=== PATIENT | male | born 1965 | race Caucasian/White ===

== ENCOUNTER → 2018-04-18 10:19 | Outpatient (CLI) | payer OTHER, SELFPAY ==
--- NOTE | 2018-04-18 10:31 | RAD_ITS ---
STUDY: X-RAY - LEFT KNEE REASON FOR EXAM: Male, 52 years old. Pain. TECHNIQUE: 4 view(s) of the knee. COMPARISON: None. FINDINGS: Normal visualized distal femur. Normal visualized proximal tibia and fibula. Normal proximal tibiofibular articulation. There is no demonstrated fracture. There is mild degenerative arthrosis of the medial femorotibial compartment. Normal lateral femorotibial compartment. There is mild degenerative arthrosis of the patellofemoral articulation. The soft tissue structures are unremarkable. RAD/Knee 4 or More Views IMPRESSION: Degenerative arthrosis. Electronically Signed: Conor Chavis MD at 10:57 EDT , Service support ,
== END ==
PROVIDERS: Family Provider Family Medicine; PCP Family Medicine; Visit Provider Family Medicine
DX: M25.562 Pain in left knee (principal)
CPT/HCPCS: 73564

== ENCOUNTER → 2019-06-29 08:54 | Outpatient (CLI) | payer OTHER, SELFPAY ==
[2019-06-29 10:22] LABS: ALB/GLOB Ratio 1.3 RATIO (0.9-2.4); AST(SGOT) 33 U/L (15-37); Alanine Aminotransfer ALT/SGPT 64 U/L (16-61); Albumin, Serum 4.3 g/dL (3.2-5.0); Alkaline Phosphatase 65 U/L (45-117); Anion Gap 5 (5-15); BUN 25 mg/dL (7-18); Calcium,Total 9.3 mg/dL (8.5-10.1); Chloride 107 mmol/L (98-107); Creatinine, Serum 1.19 mg/dL (0.70-1.30); EST Glomerular Filtration Rate 68 mL/min (>60); Est Glom Filt Rate - Afr Amer 82 mL/min (>60); Globulin 3.4 g/dL (2.2-4.2); Glucose 91 mg/dL (74-106); PSA,Total - Annual Screen 0.83 ng/mL (0.00-4.00); Potassium 4.6 mmol/L (3.5-5.1); Protein, Total 7.7 g/dL (6.4-8.2); Sodium Level 141 mmol/L (136-145)
== END ==
PROVIDERS: Family Provider Family Medicine; PCP Family Medicine; Referring Provider Family Medicine; Visit Provider Family Medicine
DX: R10.13 Epigastric pain (principal); Z12.5 Encounter for screening for malignant neoplasm of prostate
CPT/HCPCS: 36415; 80053; 84153; G0103

== ENCOUNTER → 2020-07-15 11:03 | Outpatient (CLI) | payer OTHER, SELFPAY | PROVIDERS: PCP Family Medicine; Referring Provider Family Medicine; Visit Provider Family Medicine | DX: Z00.00 Encounter for general adult medical examination without abnormal findings (principal) | CPT/HCPCS: 36415 ==

== ENCOUNTER → 2021-12-15 | Outpatient (CLI) | payer OTHER, SELFPAY ==
--- NOTE | 2021-12-15 13:56 | RAD_ITS ---
STUDY: XR Knee Complete 4 Views or More 12/15/2021 4:43 PM REASON FOR EXAM: Male, 56 years old. PAIN -- EUGENE TECHNIQUE: XR Knee Complete 4 Views or More RIGHT COMPARISON: None FINDINGS: Normal visualized distal femur. Normal visualized proximal tibia and fibula. Normal proximal tibiofibular articulation. There is moderate degenerative arthrosis of the medial femorotibial compartment with moderate joint space narrowing. Normal lateral femorotibial compartment. There is severe degenerative arthrosis of the patellofemoral articulation. The soft tissue structures are unremarkable. RAD/Knee 4 or More Views IMPRESSION: Degenerative arthrosis. Electronically Signed: Ronan Gracia MD at 16:44 EDT ,
--- NOTE | 2021-12-15 13:56 | RAD_ITS ---
STUDY: XR Knee Complete 4 Views or More 12/15/2021 4:42 PM REASON FOR EXAM: Male, 56 years old. PAIN -- BILATERAL KNEE PAIN TECHNIQUE: XR Knee Complete 4 Views or More LEFT COMPARISON: None FINDINGS: Normal visualized distal femur. Normal visualized proximal tibia and fibula. Normal proximal tibiofibular articulation. There is moderate degenerative arthrosis of the medial femorotibial compartment with moderate joint space narrowing. Normal lateral femorotibial compartment. There is mild degenerative arthrosis of the patellofemoral articulation. There is a soft tissue prominence in the suprapatellar region suggesting a small volume joint effusion. The soft tissue structures are unremarkable. RAD/Knee 4 or More Views IMPRESSION: Degenerative arthrosis. Effusion, as described above. Electronically Signed: Ronan Gracia MD at 16:43 EDT ,
[2021-12-15 15:48] LABS: ALB/GLOB Ratio 1.2 RATIO (0.9-2.4); AST(SGOT) 43 U/L (15-37); Alanine Aminotransfer ALT/SGPT 66 U/L (16-61); Albumin, Serum 4.3 g/dL (3.2-5.0); Alkaline Phosphatase 67 U/L (45-117); Anion Gap 8 (5-15); BUN 18 mg/dL (7-18); BUN/Creat Ratio 14.9 RATIO (10-20); Calcium,Total 9.2 mg/dL (8.5-10.1); Chloride 105 mmol/L (98-107); Creatinine, Serum 1.21 mg/dL (0.70-1.30); EST Glomerular Filtration Rate 66 mL/min (>60); Est Glom Filt Rate - Afr Amer 80 mL/min (>60); Globulin 3.7 g/dL (2.2-4.2); Glucose 119 mg/dL (74-106); Potassium 3.7 mmol/L (3.5-5.1); Sodium Level 139 mmol/L (136-145)
== END | disposition home or self-care (01) ==
PROVIDERS: PCP Family Medicine; Referring Provider Family Medicine; Visit Provider Family Medicine
DX: M25.562 Pain in left knee (principal); M25.561 Pain in right knee; R79.89 Other specified abnormal findings of blood chemistry
CPT/HCPCS: 36415; 73564; 80053

== ENCOUNTER 2024-05-22 07:52 | Day surgery (SDC) | payer OTHER, SELFPAY ==
[2024-05-22] VITALS (7 sets, daily range): BP systolic 92–137; BP diastolic 42–89; PULSE 68–78; RESP 16; TEMP 36.3–36.6; O2SAT 93–97; BMI 37.3
--- NOTE | 2024-05-22 08:05 | PCM.PRE.AN2 ---
ASA Classification* ASA Classification ASA Classification: 2 Assessment & Plan Anesthesia* Anesthesia Assessment Anesthesia Assessment: Discussed sedation and/or anesthesia options, risks, benefits, and alternatives with patient/parents/legal guardian/POA. Questions invited. The patient/parents/legal guardian/POA seems to understand and agrees to proceed with anesthesia plan. Reviewed the physical assessment, medical history, allergy history and patient home medications list prior to surgery/procedure/anesthetic and documented any changes. Performed airway and anesthesia risk assessments. 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 When Was Last Pacemaker Check QUESTION #4 FULL TEXT: You/Your Family Experience fever (hyperthermia) with Anesthesia Last Oral Intake Last Oral intake: Last Oral Intake NPO since Meds taken in AM with sips of water? Meds patient instructed to take am of surgery PONV PONV - job training specialist: PONV - job training specialist Female No 05/21/24 08:36 HX of Motion Sickness No 05/21/24 08:36 HX of N/V After Surgery No 05/21/24 08:36 Non-Smoker Yes 05/21/24 08:36 Duration of Surgery greater No 05/21/24 08:36 than 60 minutes Number of Risk Factors 1 05/21/24 08:36 PONV Score Low Risk 05/21/24 08:36 Height & Weight Height & Weight: Anesthesia: Height & Weight Height 6 ft 2 in 03/11/24 09:19 Respiratory Assessment Respiratory Assessment - job training specialist: Respiratory Tract Infection Hx - job training specialist Hx Respiratory Tract Infection No 05/21/24 08:36 STOP Sleep Apnea STOP Sleep Apnea - job training specialist: STOP Sleep Apnea - job training specialist Hx Hypertension No 05/21/24 08:36 Hx Sleep Apnea No 05/21/24 08:36 CPAP BIPAP Do you snore loudly (louder Yes 05/21/24 08:36 than talking or can be heard Do you often feel tired/ No 05/21/24 08:36 fatigued/ sleepy during daytime? Has anyone observed you stop Yes 05/21/24 08:36 breathing during sleep? STOP Results Positive 05/21/24 08:36 QUESTION #5 FULL TEXT : Do you snore loudly (louder than talking or can be heard through closed doors)? 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 Specify any problems Hx of Preganancy in last 3 N/A 05/21/24 08:36 Months Nurse Filling Out Transfusion [email or web address] 05/21/24 08:36 & Questions: Date: 05/21/24 05/21/24 08:36 Time: 08:38 05/21/24 08:36 Patient unable to answer at this time (ie. confused, unrespo /Reproduction History /Reproductive History - job training specialist: /Reproductive Hx- job training specialist Hx Now Gestational Age (in weeks): EDC: Hx Hx Para Hx Section SAB PFSH Medical History Wears glasses Gastric reflux Non-smoker Dyspepsia Family hx of colon cancer Hx of colonic polyps Home Medications ?Medication ?Instructions ?Recorded ?Last Taken ?Type pantoprazole 40 mg tablet,delayed 40 mg PO DAILY 03/11/24 Unknown History release meloxicam 15 mg tablet 15 mg PO DAILY 05/21/24 05/20/24 History Allergy/AdvReac Type Severity Reaction Status Date / Time No Known Allergies Allergy Verified 05/21/24 08:34 Family History Grandmother Colon cancer, Onset Age: 70 Paternal Father Colon polyps Grandmother Colon cancer, Onset Age: 70 maternal Surgical History History of esophagogastroduodenoscopy (EGD) Hx of colonoscopy Social History household members: spouse current occupational status: employed Smoking Status: Never smoker substance use type: does not use Review of Systems (Anesthesia) ROS Narrative System reviewed and no additional complaints, except as documented.
--- NOTE | 2024-05-22 09:03 | H&P.OPEN ---
HPI - General HPI Narrative STEF VILLAR, is a 58 M who presents for screening colonoscopy. His last 1 was about 8 years ago. He does have family history of colon cancer in his father and grandfather and has colonoscopy every 5 years. He had a polyp during his first colonoscopy but he does not have any polyps on his last one. He denies abdominal pain or blood in the stool. [facility] Medical History Wears glasses Gastric reflux Non-smoker Dyspepsia Family hx of colon cancer Hx of colonic polyps Home Medications ?Medication ?Instructions ?Recorded ?Last Taken ?Type pantoprazole 40 mg tablet,delayed 40 mg PO DAILY 03/11/24 Unknown History release meloxicam 15 mg tablet 15 mg PO DAILY 05/21/24 05/20/24 History Allergy/AdvReac Type Severity Reaction Status Date / Time No Known Allergies Allergy Verified 05/22/24 08:09 Family History Grandmother Colon cancer, Onset Age: 70 Paternal Father Colon polyps Grandmother Colon cancer, Onset Age: 70 maternal Surgical History History of esophagogastroduodenoscopy (EGD) Hx of colonoscopy Social History household members: spouse current occupational status: employed Smoking Status: Never smoker substance use type: does not use Past Medical/Surgical History Planned Operation Planned Operative Procedure(s): COLONOSCOPY Previous Hospitalizations/Surgeries HX Hospitalizations: No Any Problems With Anesthesia: No You/Your Family Experience Fever (Hyperthermia) With Anes: No Cholinesterase deficiency: No Cardiovascular Hx Hypertension: No Respiratory Hx Sleep Apnea: No Hx Respiratory Tract Infection/Cold (presently): No Do You Snore Loudly (louder than talking or can be heard): Yes Do You Often Feel Tired/ Fatigued/ Sleepy Dring Daytime?: No Has Anyone Observed You Stop Breathing During Sleep?: Yes Result (for STOP score): Positive Smoking Status: Never smoker Neurological Does patient have nerve stimulator: No Miscellaneous Recent Exposure to Contagious Disease: No Allergies No Known Allergies Allergy (Verified 05/22/24 08:09) Discharge After D/C, Where Do you Plan to Go: Return Home Vital Signs Vital Signs Vital Signs: 05/22/24 08:10 05/22/24 08:10 Temperature 97.4 F L Temperature Source Temporal Pulse Rate 78 Respiratory Rate 16 Respiratory Pattern Normal Blood Pressure 137/89 H Blood Pressure Mean 105 Blood Pressure Source Monitor Blood Pressure Position Semi-Fowlers Blood Pressure Location Left Arm Pulse Ox 94 Oxygen Delivery Method Room Air Weight Weight: 291 lb 0.163 oz Body Mass Index (BMI) 37.3 Physical Exam Const alert and oriented x3 HEENT normocephalic Eyes PERRL Resp normal respiratory effort and normal air movement Cardio regular rate and regular rhythm GI soft to palpation, non-tender and non-distended Extremity normal to inspection Assessment & Plan Assessment/Plan (1) Screen for colon cancer: PLAN: I explained endoscopy in detail to the patient. I explained the risks including but not limited to stroke or heart attack with anesthesia, perforation of the GI tract, bleeding, infection. I explained that any of these could necessitate further emergency surgery. The patient understands and all questions were answered sufficiently. The patient wishes to proceed with procedure. Mannie Snyder MD Pager: [facility] [address] [place] [address], [address] [place] [address] Office: Surgery Risks - Colonoscopy Risks Include but are not Limited To: Risks include but are not limited to: Bleeding, perforation requiring further surgery, inability to complete colonoscopy requiring barium enema.
--- NOTE | 2024-05-22 09:31 | OP.COLON_ITS ---
Patient Name: Francis Perez Procedure Date: 05/22/2024 9:09 AM Date of : 1965 Age: 58 Procedure: Colonoscopy Indications: Screening in patient at increased risk: Family history of 1st-degree relative with colorectal cancer Providers: Mannie Snyder MD Referring MD: Grady Morejon Medicines: Propofol per Anesthesia Patient Profile: This is a 58 year old male. Refer to note in patient chart for documentation of history and physical. Last Colonoscopy: several years ago. Complications: No immediate complications. Procedure: Pre-Anesthesia Assessment: - Prior to the procedure, a History and Physical was performed, and patient medications and allergies were reviewed. The patient's tolerance of previous anesthesia was also reviewed. The risks and benefits of the procedure and the sedation options and risks were discussed with the patient. All questions were answered, and informed consent was obtained. Prior Anticoagulants: The patient has taken no anticoagulant or antiplatelet agents. After reviewing the risks and benefits, the patient was deemed in satisfactory condition to undergo the procedure. After I obtained informed consent, the scope was passed under direct vision. Throughout the procedure, the patient's blood pressure, pulse, and oxygen saturations were monitored continuously. The was introduced through the anus and advanced to the cecum, identified by appendiceal orifice and ileocecal valve. The colonoscopy was performed without difficulty. The patient tolerated the procedure well. The quality of the bowel preparation was good. The ileocecal valve, appendiceal orifice, and rectum were photographed. Scope In: 9:18:42 AM Scope Withdrawal Time 0 hours 4 minutes 55 seconds Scope Out: 9:27:51 AM Total Procedure Duration Time 0 hours 9 minutes 9 seconds Findings: The entire examined colon appeared normal on direct and retroflexion views. Impression: - The entire examined colon is normal on direct and retroflexion views. - No specimens collected. Recommendation: - Discharge patient to home. - Resume previous diet. - Continue present medications. - Repeat colonoscopy in 5 years for surveillance. Procedure Code(s): --- Professional --- 78244, Colonoscopy, flexible; diagnostic, including collection of specimen(s) by brushing or washing, when performed (separate procedure) Diagnosis Code(s): --- Professional --- Z80.0, Family history of malignant neoplasm of digestive organs CPT copyright 2021 [employer]. All rights reserved. The codes documented in this report are preliminary and upon orthopedic coder review may be revised to meet current compliance requirements. Mannie Snyder MD 05/22/2024 9:31:11 AM This report has been signed electronically. Number of Addenda: 0 Note Initiated On: 05/22/2024 9:09 AM
--- NOTE | 2024-05-22 09:31 | OP.CCLET_ITS ---
05/22/2024 Grady Morejon [address] [place] [address] Re : Colonoscopy procedure for Francis Perez Dear Dr. Morejon This procedure was performed on Wednesday, May 22, 2024. My impressions and recommendations are as follows: Impressions : - The entire examined colon is normal on direct and retroflexion views. - No specimens collected. Recommendations : - Discharge patient to home. - Resume previous diet. - Continue present medications. - Repeat colonoscopy in 5 years for surveillance. My findings are described in the full procedure note, which is enclosed. If I can be of further assistance, please feel free to contact me at Doctor phone number(s): , Work: . Sincerely, Mannie Snyder MD 05/22/2024 9:31:11 AM This report has been signed electronically.
--- NOTE | 2024-05-22 09:35 | PCM.POST.ANE ---
Anesthesia: Postop Eval I Current Vital Signs Temperature: 97.8 F Pulse Rate: 70 Blood Pressure: 95/79 Respiratory Rate: 16 Pulse Ox: 96 Oxygen Delivery Method: Room Air Assessment Airway patent: Yes Spontaneous unlabored respirations: Yes Mental status: Asleep nausea: No Vomiting: No Anesthesia Complication: No Fluid Hydration Crystalloid volume administer (ml): 50 Total IV fluid infused: 50 Progress Note Anesthesia document: Postop Eval 1 completed: Yes
--- NOTE | 2024-05-22 10:16 | PCM.POSTANE2 ---
Anesthesia Postop Eval I Sum Postop Eval Completion status Anesthesia document: Postop Eval 1 completed: Yes Anesthesia Postop Eval I Summary Anesthesia Postop Eval I Summary: Anesthesia Postop Eval I: Assessment Summary Airway patent Yes 05/22/24 09:36 [email or web address] Spontaneous unlabored Yes 05/22/24 09:36 [email or web address] respirations Mental status Asleep 05/22/24 09:36 [email or web address] nausea No 05/22/24 09:36 [email or web address] Vomiting No 05/22/24 09:36 [email or web address] Anesthesia Postop Eval I: Fluid Summary Crystalloid volume administer 50 05/22/24 09:36 [email or web address] (ml) Colloids volume administered ( ml) Blood Product volume administered (ml) Total IV fluid infused 50 05/22/24 09:36 [email or web address] Anesthesia Postop Eval I: Summary Notes Anesthesia Complication No 05/22/24 09:36 [email or web address] Anesthesia Complication Comment: Post-operative progress note Anesthesia: Postop Eval II Evaluation Mental status: Awake Pain Level: 0 nausea: No Vomiting: No
== END 2024-05-22 10:09 | disposition home or self-care (01) ==
LOC: EN 07:54 → AC 07:54
PROVIDERS: PCP Family Medicine; Referring Provider Family Medicine; Visit Provider Surgery
PROC: 0DJD8ZZ Inspection of Lower Intestinal Tract, Via Natural or Artificial Opening Endoscopic (ICD-10-PCS; CPT 45378; principal; 2024-05-22 08:55)
DX: Z12.11 Encounter for screening for malignant neoplasm of colon (principal); Z80.0 Family history of malignant neoplasm of digestive organs; Z86.0100 Personal history of colon polyps, unspecified; K21.9 Gastro-esophageal reflux disease without esophagitis; Z79.899 Other long term (current) drug therapy
CPT/HCPCS: 45378; A4216; J2405

== ENCOUNTER → 2024-07-23 | Outpatient (CLI) | payer OTHER, SELFPAY ==
[2024-07-23 13:25] LABS: Bacteria 0 SEEN /hpf (None Seen); Mucous, Urine 0 SEEN /hpf (<or=2+); Red Blood Cells-Urine 0 SEEN /hpf (0-5); White Blood Cells 0 SEEN /hpf (0-5)
[2024-07-23 15:15] LABS: Color, Urine Yellow (Yellow); Glucose, Dipstick Normal (Normal); Ketone-Dipstick Negative (Negative); Leukocyte Esterase-Dipstick Negative /ul (Negative); Nitrite-Dipstick Negative (Negative); Occult Blood-Urine Negative /ul (Negative); Protein-Dipstick 15 mg/dl (Negative); Specific Gravity, Urine 1.015 (1.002-1.030); Urine Bilirubin Dipstick Negative (Negative); Urine Clarity Clear (Clear); Urine Urobilinogen Normal (Normal)
[2024-07-23 15:21] LABS: Squamous Epithelial Cells - UA 0-5 SEEN /hpf (0-5)
[2024-07-23 15:51] LABS: ALB/GLOB Ratio 1.2 RATIO (0.9-2.4); AST(SGOT) 37 U/L (15-37); Alanine Aminotransfer ALT/SGPT 70 U/L (16-61); Albumin, Serum 4.3 g/dL (3.2-5.0); Alkaline Phosphatase 70 U/L (45-117); Anion Gap 7 (5-15); BUN 17 mg/dL (7-18); BUN/Creat Ratio 15.2 RATIO (10-20); Calcium,Total 9.1 mg/dL (8.5-10.1); Chloride 106 mmol/L (98-107); Creatinine, Serum 1.12 mg/dL (0.70-1.30); EST Glomerular Filtration Rate 72 mL/min (>60); Est Glom Filt Rate - Afr Amer 87 mL/min (>60); Globulin 3.6 g/dL (2.2-4.2); Glucose 101 mg/dL (74-106); PSA,Total - Annual Screen 1.13 ng/mL (0.00-4.00); Potassium 3.9 mmol/L (3.5-5.1); Protein, Total 7.9 g/dL (6.4-8.2); Sodium Level 137 mmol/L (136-145)
[2024-07-23 16:23] LABS: Microalbumin,Random Urine 14.4 mg/L (NO RANGE EST.)
== END | disposition home or self-care (01) ==
LOC: MTLAB 13:22
PROVIDERS: PCP Family Medicine; Referring Provider Family Medicine; Visit Provider Family Medicine
DX: R03.0 Elevated blood-pressure reading, without diagnosis of hypertension (principal); R79.89 Other specified abnormal findings of blood chemistry; Z12.5 Encounter for screening for malignant neoplasm of prostate
CPT/HCPCS: 36415; 80053; 81001; 82043; 82570; 84153; G0103